=== PATIENT | male | born 1950 | race Caucasian/White ===

== ENCOUNTER 2017-09-27 06:33 | Inpatient (IN) | payer MEDICARE, OTHER ==
[2017-09-15 09:50] LABS: HEMATOCRIT 47.4 % (42.0-52.0); HEMOGLOBIN 15.8 gm/dL (14.0-18.0); MCH 31.5 pg (26.0-34.0); MCHC 33.2 g/dL (28.0-37.0); MCV 94.9 fL (80.0-100.0); MPV 8.3 fl. (7.2-11.1); RDW-CV 12.8 % (10.5-14.5); WBC 7.1 thou/uL (4.0-11.0)
[2017-09-15 09:56] LABS: PROTIME 9.5 Seconds (9.20-11.50)
[2017-09-15 10:00] LABS: URINE BILIRUBIN NEGATIVE (Negative); URINE BLOOD NEGATIVE (Negative); URINE CLARITY CLEAR; URINE COLOR YELLOW; URINE GLUCOSE-RANDOM NEGATIVE (Negative); URINE KETONES NEGATIVE (Negative); URINE LEUKOCYTES-REFLEX NEGATIVE (Negative); URINE NITRITE-REFLEX NEGATIVE (Negative); URINE PROTEIN NEGATIVE (Negative); URINE SPECIFIC GRAVITY 1.015 (1.005-1.030); URINE UROBILINOGEN 0.2 E.U./dl (0.2-1.0)
[2017-09-15 10:17] LABS: ALBUMIN 3.9 g/dL (3.4-5.0); CALCIUM 8.9 mg/dL (8.5-10.1); CREATININE 0.9 mg/dL (0.6-1.3); POTASSIUM 4.1 mmol/L (3.5-5.1); TOTAL BILIRUBIN 0.4 mg/dL (<0.1-1.0); TOTAL PROTEIN 7.5 g/dL (6.4-8.2)
[~2017-09-27] VITALS: Ht 177.8 cm; Wt 112.5 kg
[~2017-09-27 06:33] MED LIST: IBUPROFEN 600600 M1 PO
[2017-09-27 08:07] VITALS: BP 155/76
--- NOTE | 2017-09-27 09:02 | NUR ---
RECIEVED O.T. ORDERS. WILL DEFER TO P.T. AND NURSING. PLEASE ORDER FURTHER O.T. SERVICES IF NEEDED.
[2017-09-27 12:40] VITALS: BP 137/82
--- NOTE | 2017-09-27 12:56 | NUR ---
PATIENT TRANSFERRED FROM PACU TO ROOM 114. ALERT AND ORIENTED. DENIES PAIN CURRENTLY. TOLERATING DIET. O2 AT 2L. SAT 95%. CAPNO IN PLACE. DRESSING TO RIGHT KNEE DRY AND INTACT. POLAR CARE, SCD'S AND TEDS IN PLACE. BED ALARM IN USE. EDUCATED ON FALL PREVENTION. FAMILY AT BEDSIDE. WILL CONTINUE TO MONITOR.
[2017-09-27 17:00] VITALS: BP 128/62
--- NOTE | 2017-09-27 17:07 | NUR ---
PATIENT REMAINS ALERT AND ORIENTED. PAIN TOLERATED WITH PO MEDS. TOLERATING MEALS. HEMOVAC HAD 175ML DRAINAGE IN IT. DRESSING TO KNEE DRY AND INTACT. UP TO CHAIR THIS AFTERNOON. PARTICIPATED WITH PT. CALL LIGHT WITHIN REACH. WILL CONTINUE TO MONITOR.
[2017-09-27 20:00] VITALS: BP 131/80
[2017-09-27 23:12] VITALS: BP 123/76
--- NOTE | 2017-09-28 04:56 | NUR ---
PATIENT ORIENTED X4. UP WITH STAND BY ASSIST TO BATHROOM, VOIDING ADEQUATELY. MEDICATED FOR PAIN WITH ORAL MEDICATIONS. DRESSING TO LEFT KNEE IS CLEAN, DRY AND INTACT WITH POLAR CARE IN PLACE. O2 SATS 98% ON 2L WITH CAPNO IN PLACE. WILL CONTINUE TO MONITOR.
--- NOTE | 2017-09-28 04:59 | NUR ---
PATIENT ORIENTED X4 ON HOURLY ROUNDS. AMBULATED TO BATHROOM WITH STAND BY ASSIST, GAIT BELT AND WALKER. VOIDING ADEQUATELY. TOLERATING DIET. DENIES NAUSEA. PAIN CONTROLLED WITH ORAL MEDICATION. DRESSING TO RIGHT KNEE IS CLEAN, DRY AND INTACT WITH POLAR CARE IN PLACE. VITALS STABLE ON 2L O2, CAPNO. WILL CONTINUE TO MONITOR.
[2017-09-28 05:05] LABS: HEMATOCRIT 38.4 % (42.0-52.0); HEMOGLOBIN 12.6 gm/dL (14.0-18.0)
[2017-09-28 08:02] VITALS: BP 118/76
--- NOTE | 2017-09-28 08:56 | OP ---
[facility] [address] [place] [address] OPERATIVE REPORT Name: KALLIE SOTELO Room: [address] IN .R.#: [id number] Admission: 09/27/17 Attend Phys: rBisa Mckeon Discharge: Date of : 48 Report #: [id number] THIS REPORT FOR: //name// CC: Galen Hardwick DATE OF SERVICE: 09/27/2017 PREOPERATIVE DIAGNOSIS: Right knee osteoarthritis. POSTOPERATIVE DIAGNOSIS: Right knee osteoarthritis. PROCEDURE: Right total knee arthroplasty. SURGEON: Galen Garcia II, DO. PRESS OPERATOR AUTOMATIC: MARISOL Neves. ANESTHESIA: Per operative record. ESTIMATED BLOOD LOSS: 50 mL. ANTIBIOTICS: Per operative record. DRAINS: Medium Hemovac. COMPLICATIONS: None. CONDITION: The patient is stable to recovery room. IMPLANTS USED: Listed in the chart and operative record. BRIEF HISTORY: The patient was seen in the preoperative area. Preoperative H and P was performed. Site was marked. Questions were answered. Risks and benefits were discussed with the patient in detail. He understood all risks and wished to proceed. DESCRIPTION OF PROCEDURE: The patient was taken to the operative suite, placed supine on the operating table. After appropriate anesthesia, the patient's right knee was sterilely prepped and draped with well-padded tourniquet applied. It was inflated to 300 mmHg after gravity exsanguination for the duration of the procedure. Surgery began by midline incision, carried down through subcutaneous tissues. A medial parapatellar arthrotomy was performed and carried down to bone. The patella was everted and excess osteophytes were removed from around the femur and tibia. The trackers [place] [address] OPERATIVE REPORT Name: KALLIE SOTELO Room: [address] IN [facility].#: [id number] Admission: 09/27/17 Attend Phys: Brisa Mckeon Discharge: Date of : 48 Report #: [id number] tibia and femur in appropriate fashion. The knee was registered through Intellijoule robotic surgery application. The surfaces were then painted in appropriate fashion utilizing the probe and sized to appropriate size utilizing the Intellijoule robotic software. After this was confirmed, the peg holes were then burred utilizing a right device. These were checked for appropriate alignment within appropriate position. Distal cut was made on the femur. The 4-in-1 cutting block holes were then drilled and the 4-in-1 cutting block was applied within appropriate position and checked for rotation alignment. Utilizing the Intellijoule robotic assistance, an appropriate cut was made. Excess bone was removed. Attention then turned to the tibia, once again checked with robotic assistance. Being in appropriate position, the appropriate cuts were made and excess bone was removed at the level of the meniscus and ACL and PCL at this time. This was then checked for rotation alignment and the tibial baseplate was then pinned. The femur was then applied and box cut was reamed. This was trialed with the appropriate size spacer, taken through flexion and extension and showed excellent flexion and extension and excellent range of motion and excellent alignment and tracking was noted on the software. The patella was reamed in appropriate fashion. Three peg holes were drilled and once again trialed. It showed excellent tracking with flexion and extension of the knee. These trials were removed. The tibia was punched in appropriate fashion. Bone ends were cleansed with Pulsavac irrigation. Cement was mixed and applied to the implants. These were malleted into position and held the knee in extension and compression and allowed the cement to cure. After the cement cured, excess was removed using [place] and osteotome. The final spacer was then trialed, selected and the final implant was then malleted into position. Tourniquet was deflated. Hemostasis was maintained with electrocautery. The patient did have full flexion and extension of the knee and completion as well as intact medial and lateral collateral ligaments and intact MCL with posterior stabilized component. The wound was then copiously irrigated. A medium Hemovac drain was then placed. The capsule was then closed with a FiberWire and Vicryl stitch. Skin was closed with 2-0 Vicryl, running Monocryl stitch. Dermabond dressing was applied. The tracker sites were closed with nylon. Franko wrap and PolarCare were then applied. Pain cocktail was injected and PRP gel was sprayed throughout internal aspect of the knee. The patient was transported to recovery in stable condition. Counts were correct throughout the procedure. <ELECTRONICALLY SIGNED> By: Galen Garcia II, DO 09/28/17 0856 1601 [id number] Garcia II, DO /nt
[2017-09-28] MEDS ORDERED: PERCOCET PO ×2 (09:41→10:01)
[2017-09-28] MEDS ORDERED: XARELTO10 MG PO (09:41)
[2017-09-28 09:42] VITALS: BP 118/76
[2017-09-28 13:10] VITALS: BP 118/76
--- NOTE | 2017-09-28 13:14 | NUR ---
SPOKE WITH PT.AND EARLIER. HE PLANS ON GOING HOME AFTER AFTERNOON THERAPY HE HAS A WALKER HERE IN ROOM FOR THERAPY TO LOOK AT. DISCUSSED CPM AND POLAR PACK. HE WOULD LIKE TO HAVE HOME HEALTH FOR A COUPLE OF WEEKS AND THEN GO TO OUTPT.THERAPY. HE CHOSE [facility]. PT.'S PICKED UP PAIN MEDS AND XARELTO YESTERDAY AT PHARMACY. MADE REFERRAL AND FAXED DISCHARGE ORDERS/MEDS TO ÁNGEL AT [facility]. THEY WILL CALL TOMORROW TO SET UP APPT. TO SEE PT.
--- NOTE | 2017-09-28 14:07 | NUR ---
PATIENT DISCHARGED TO HOME WITH HOME HEALTH AT THIS TIME. IV REMOVED. PAIN CONTROLLED WITH PO MEDS. PARTICIPATED WITH PHYSICAL THERAPY. PATIENT ANXIOUS TO DISCHARGE HOME. TOLERATING MEALS. PATIENT INSTRUCTED TO USE OVER THE COUNTER STOOL SOFTENERS. THIS NURSE SHOWED DR. GRANT THE INCISION THERE WAS SOME SANGUINEOUS DRAINAGE AT THE TOP, DR. GRANT DID NOT WANT IT CHANGED AT THIS TIME. CPM SENT WITH PATIENT. PATIENT AND SPOUSE VERBALIZE UNDERSTANDING OF DC INSTRUCTIONS.
--- NOTE | 2017-09-29 10:49 | S ---
[address] [address] SURGICAL PATH RPT PROCEDURE Name: ASHLEIGHMIKE Ledezma Room: [address] M.R.#: [id number] Admission: 09/27/17 Date of : 48 Discharge: 09/28/17 Report #: [id number] Path Case #: [id number] PATHOLOGY REPORT COLLECTION DATE: 09/27/2017 RECEIVED DATE: 09/27/2017 SUBMITTING PHYS: Dr. Galen Garcia II OTHER PHYS: Dr. Tereso Hardwick SPECIMEN(S) RECEIVED: A.Right knee bone and tissue * * * * * * * * * * * * FINAL DIAGNOSIS: Bone and soft tissue "right knee bone and tissue, joint resection": - Degeneration of cartilage consistent with degenerative joint disease. - The soft tissue reveals fibrosis. (SHA:[facility]; 09/29/2017) PATHOLOGIST: Sujit Phipps M.D. REPORT ELECTRONICALLY SIGNED BY: Sujit Phipps M.D. DATE/TIME: 09/29/2017 10:49 * * * * * * * * * * * * GROSS PATHOLOGY: Received in formalin labeled "Mike Sotelo, right knee bone and tissue," are multiple segments of bone, including tibial plateau, measuring 17.2 x 14.4 x 2.6 cm in aggregate dimensions admixed with soft tissue; meniscus is present. The specimen shows focal eburnation of the articular surfaces. Sample Maker sections of bone and soft tissue are submitted in cassette A1, following decalcification. (DAC; 09/28/2017) CLINICAL HISTORY: Right knee degenerative joint disease INITIAL CPT CODE(S): A; 64389, 47276 Professional services performed by [facility] at [facility], [address] [place] [address] , [place] [address]. Technical services performed by [facility] at [address] [place] [address], [facility] [address], [place] [address]. [place] [address] SURGICAL PATH RPT PROCEDURE Name: MIKE SOTELO Room: [address] IN ..#: [id number] Admission: 09/27/17 Date of : 48 Discharge: 09/28/17 Report #: [id number] Path Case #: [id number] [facility] [address] [address] PHONE: [phone] DIRECTOR: Constantine Ridley M.D. * * * END OF REPORT * * *
== END 2017-09-28 14:50 | disposition home health service (06) | DRG 470 ==
LOC: M.TBA 06:33 → M.ORTHSURG 06:33 → M.PRE 08:09 → M.ORTHSURG 12:01
PROVIDERS: Orthopaedic Surgery; ADMIT Internal Medicine
PROC: 0SRC0J9 Replacement of Right Knee Joint with Synthetic Substitute, Cemented, Open Approach (ICD-10-PCS; principal; 2017-09-27)
PROC: 3E0T3BZ Introduction of Anesthetic Agent into Peripheral Nerves and Plexi, Percutaneous Approach (ICD-10-PCS; 2017-09-27)
DX: M17.11 Unilateral primary osteoarthritis, right knee (principal); E66.9 Obesity, unspecified; Z88.2 Allergy status to sulfonamides; Z68.35 Body mass index [BMI] 35.0-35.9, adult

== ENCOUNTER 2020-03-06 12:25 | Emergency (ER) | payer MEDICARE, OTHER ==
[~2020-03-06] VITALS: Ht 182.9 cm; Wt 115.7 kg
[~2020-03-06 12:25] MED LIST changes: +PERCOCET PO; +XARELTO10 MG PO
[2020-03-06] MEDS ORDERED: ONDANSETRON HCL4 M2 PO (13:51)
[2020-03-06] MEDS ORDERED: IBUPROFEN 800800 M1 PO (13:51)
[2020-03-06] MEDS ORDERED: NORCO 5-325 TA1 EAC1 PO (13:51)
[2020-03-06 14:42] VITALS: BP 136/78
[2020-03-18] MEDS ORDERED: TYLENOL325 M1 PO (07:55)
[2020-03-20] MEDS ORDERED: NORCO 5-325 TA1 EAC1 PO (14:24)
== END 2020-03-06 14:42 | disposition home or self-care (01) ==
LOC: M.ERS 12:25
DX: S82.832A Other fracture of upper and lower end of left fibula, initial encounter for closed fracture (principal); S93.02XA Subluxation of left ankle joint, initial encounter; W01.0XXA Fall on same level from slipping, tripping and stumbling without subsequent striking against object, initial encounter; Y93.89 Activity, other specified; Y92.89 Other specified places as the place of occurrence of the external cause; Y99.8 Other external cause status

== ENCOUNTER → 2020-03-20 | Day surgery (SDC) | payer MEDICARE, OTHER ==
[~2020-03-20] MED LIST changes: +IBUPROFEN 800800 M1 PO; +NORCO 5-325 TA1 EAC1 PO; +ONDANSETRON HCL4 M2 PO; +TYLENOL325 M1 PO
[2020-03-20 12:25] LABS: HEMATOCRIT 41.4 % (42.0-52.0); HEMOGLOBIN 14.5 gm/dL (14.0-18.0); MCH 33.1 pg (26.0-34.0); MCV 94.5 fL (80.0-100.0); MPV 7.7 fl. (7.2-11.1); RBC 4.38 mil/uL (4.50-6.00); RDW-CV 13.3 % (10.5-14.5)
[2020-03-20 12:37] LABS: CALCIUM 8.7 mg/dL (8.5-10.1); CREATININE 0.8 mg/dL (0.6-1.3); POTASSIUM 4.5 mmol/L (3.5-5.1)
--- NOTE | 2020-03-20 14:17 | EKG ---
[place] [address] ELECTROCARDIOGRAM REPORT Name: KALLIE SOTELO Room: [facility]#: [id number] Admission: 03/20/20 Attend Phys: Galen Garcia, Discharge: Date of : 48 Date of Service: 03/20/20 1221 Report #: [id number] THIS REPORT FOR: //name// [facility] Test Date: 2020-03-20 Test Time: 12:21:41 Pat Name: KALLIE ASHLEIGH Department: Room: Gender: Monitoring Engineer: : 1950 Requested By: Galen Garcia Order Number: [id number] Ana MD: Yfn Conley Measurements Intervals [place] Rate: 76 P: -15 MS: 153 QRS: -35 QRSD: 99 T: 29 QT: 397 QTc: 447 Interpretive Statements Sinus rhythm Left axis deviation Abnormal R-wave progression, late transition No previous ECG available for comparison Electronically Signed On 03-20-2020 14:16:19 CDT by Yfn Conley [email or web address] <ELECTRONICALLY SIGNED> By: Yfn Conley MD, [facility] 03/20/20 1416 1221 122 Yfn Conley MD, [facility] /EPI
--- NOTE | 2020-03-25 10:19 | OP ---
[address] [address] OPERATIVE REPORT Name: KALLIE SOTELO Room: [facility]#: [id number] Admission: 03/20/20 Attend Phys: Galen Garcia II Discharge: Date of : 48 Report #: [id number] THIS REPORT FOR: //name// cc: JAN JUNG MD, OLUWATOBI MD ~ THIS REPORT FOR: //name// CC: JAN Garcia DATE OF SERVICE: 03/20/2020 PREOPERATIVE DIAGNOSIS: Left ankle lateral malleolus and posterior malleolus fracture with displacement. POSTOPERATIVE DIAGNOSIS: Left ankle lateral malleolus and posterior malleolus fracture with syndesmotic injury. PROCEDURE PERFORMED: Open reduction and internal fixation of left lateral malleolus fracture with syndesmotic repair. SURGEON: Galen Garcia II, DO FEDERAL AGENT: MARISOL Neves ANESTHESIA: Per operative record. ESTIMATED BLOOD LOSS: 5 mL. ANTIBIOTICS: Ancef preoperatively. IMPLANTS USED: Sherin tibial plate and Arthrex TightRope syndesmotic ligament reconstruction. CONDITION OF THE PATIENT: Stable to recovery room. DESCRIPTION OF PROCEDURE: The patient was taken to the operative suite and placed supine on the operating table, given appropriate anesthesia. The patient's left ankle was sterilely prepped and draped on bone foam with well-padded tourniquet applied to the upper thigh. It was sterilely prepped and draped. Surgery began by evaluation with C-arm. The fracture was identified and the incision was then made over the lateral malleolus, carried down to the subcutaneous tissues up to proximal and distal end of the fracture. The syndesmotic ligament was tested by pulling on the fibula, which did show some subluxation in this region. The medial malleolus was intact and the posterior malleolus was nondisplaced and in appropriate alignment and [place] [address] OPERATIVE REPORT Name: KALLIE SOTELO Room: [facility]#: [id number] Admission: 03/20/20 Attend Phys: Galen Garcia II Discharge: Date of : 48 Report #: [id number] treatment. Attention was then turned back to the right lateral malleolus. It was reduced in near anatomic fashion, held with bone reduction forceps and the lateral plate was then placed with locking and nonlocking screws to compress the fracture in this region. Once again syndesmosis was tested, utilizing a towel clamp to pull on the fibula , which did show some slight subluxation, at this time it was determined to repair of syndesmotic area utilizing the Arthrex TightRope. This was placed through one of the open holes in the plate approximately 1.5-2 cm up from the mortise. The drill bit was then directed and 30 degrees anteriorly towards the tibia and taken out through the lateral cortex. The TightRope device was then deployed through the medial aspect of the tibial cortex under the skin. It was cinched into place utilizing the secondary portion of the TightRope along the fibula through the plate. This was tensioned in situ with the foot in neutral position to allow for syndesmotic repair. The ankle was tested for range of motion, which showed full range of motion without evidence of impingement or limitation. The lateral sutures were clipped and final images taken with the C-arm. The wound was then copiously irrigated. Subcuticular layer was closed with #1 Vicryl in subcuticular interrupted fashion. The subcutaneous layer was closed utilizing a 2-0 Vicryl and a running Monocryl stitch. Dermabond and sterile dressing was applied as well as a posterior splint. The patient was transported to recovery room in stable condition. Counts were correct throughout the procedure. <ELECTRONICALLY SIGNED> By: Galen Garcia II, DO 03/25/20 1019 14 27Galen Garcia II, DO /nt
== END | disposition home or self-care (01) ==
LOC: M.SUR 11:51
PROVIDERS: ATTEND Orthopaedic Surgery
DX: S82.62XA Displaced fracture of lateral malleolus of left fibula, initial encounter for closed fracture (principal); S93.432A Sprain of tibiofibular ligament of left ankle, initial encounter; Z98.890 Other specified postprocedural states; Z11.59 Encounter for screening for other viral diseases; Z79.899 Other long term (current) drug therapy; X58.XXXA Exposure to other specified factors, initial encounter; Y93.89 Activity, other specified; Y92.89 Other specified places as the place of occurrence of the external cause; Y99.8 Other external cause status

== ENCOUNTER → 2020-04-02 | Outpatient (CLI) | payer MEDICARE, OTHER | LOC: M.RAD 12:27 | PROVIDERS: ATTEND Orthopaedic Surgery | DX: S82.62XA Displaced fracture of lateral malleolus of left fibula, initial encounter for closed fracture (principal); X58.XXXA Exposure to other specified factors, initial encounter; Y93.89 Activity, other specified; Y92.89 Other specified places as the place of occurrence of the external cause; Y99.8 Other external cause status ==

== ENCOUNTER → 2020-04-11 | Outpatient (CLI) | payer MEDICARE, OTHER | LOC: M.RAD 09:14 | PROVIDERS: ATTEND Orthopaedic Surgery | DX: S82.62XA Displaced fracture of lateral malleolus of left fibula, initial encounter for closed fracture (principal); X58.XXXA Exposure to other specified factors, initial encounter; Y93.89 Activity, other specified; Y92.89 Other specified places as the place of occurrence of the external cause; Y99.8 Other external cause status ==

== ENCOUNTER → 2020-05-09 | Outpatient (CLI) | payer MEDICARE, OTHER | LOC: M.RAD 09:17 | PROVIDERS: ATTEND Orthopaedic Surgery | DX: S82.62XA Displaced fracture of lateral malleolus of left fibula, initial encounter for closed fracture (principal); M79.89 Other specified soft tissue disorders; M19.072 Primary osteoarthritis, left ankle and foot; X58.XXXA Exposure to other specified factors, initial encounter; Y93.89 Activity, other specified; Y92.89 Other specified places as the place of occurrence of the external cause; Y99.8 Other external cause status ==

== ENCOUNTER → 2020-06-06 | Outpatient (CLI) | payer MEDICARE, OTHER | LOC: M.RAD 09:05 | PROVIDERS: ATTEND Orthopaedic Surgery | DX: S82.62XA Displaced fracture of lateral malleolus of left fibula, initial encounter for closed fracture (principal); M79.89 Other specified soft tissue disorders; X58.XXXA Exposure to other specified factors, initial encounter; Y93.89 Activity, other specified; Y92.89 Other specified places as the place of occurrence of the external cause; Y99.8 Other external cause status ==